=== PATIENT | female | born 1990 | race Caucasian/White ===

== ENCOUNTER 2021-07-06 10:42 | Emergency (ER) | payer MEDICAID, SELFPAY ==
[2021-07-06 10:44] VITALS: BP 149/105; PULSE 105; RESP 16; TEMP 36.3; O2SAT 100; BMI 43.8
--- NOTE | 2021-07-06 10:57 | EDS_ITS ---
HPI History of Present Illness Chief Complaint: Dental Informant: patient Onset/Context/Timing Onset: Weeks (6) Context: Gradual Onset Timing: Continuous Quality: Sharp, throbbing Location: Left lower jaw Worsened by: Nothing Relieved by: - (Nothing) Associated Symptoms Assocated Symptom - Dental: fever, jaw swelling, face swelling, cold sensitivity and hot sensitivity Narrative Narrative: Patient presents with left lower dental pain that has been getting worse over the past 6 weeks. Patient states it is sharp and throbbing. Patient states it is worse over the left lower molar area. Patient states she has been on antibiotics for this with no improvement. Patient states she is currently on clindamycin. Patient states nothing makes her pain worse and nothing makes it better. Patient admits to some subjective fevers. Patient also admits to swelling of her left lower jaw and face. Patient admits to hot and cold sensitivity. [facility] Medical History Chronic mental illness Home Medications citalopram 40 mg tablet 40 mg PO QDAY 03/05/17 [History Last Taken Unknown] naltrexone 50 mg tablet 50 mg PO QDAY 03/05/17 [History Last Taken Unknown] oxcarbazepine 150 mg tablet 300 mg PO BID 03/05/17 [History Last Taken Unknown] cephalexin 500 mg PO Q6 #40 capsule 07/06/21 [Rx Last Taken Unknown] dexamethasone [Decadron] 6 mg PO DAILY #7 tab 07/06/21 [Rx Last Taken Unknown] Allergy/AdvReac Type Severity Reaction Status Date / Time cyclobenzaprine Allergy Mild unknown Verified 07/06/21 10:43 [From Flexeril] amoxicillin [Amoxicillin] AdvReac Vomiting Verified 07/06/21 10:43 amoxicillin trihydrate AdvReac Vomiting Verified 07/06/21 10:43 [From Augmentin] potassium clavulanate AdvReac Vomiting Verified 07/06/21 10:43 [From Augmentin] Family History (Updated 03/05/17 @ 14:13 by Belinda Cardenas) Mother Arthritis Surgical History H/O eye surgery History of tonsillectomy Social History Smoking Status: Current every day smoker tobacco type: cigarettes ROS ROS ED Constitutional Constitutional ED: Reports fever(s) and subjective; Denies chills Eyes Eyes: Denies blurry vision or change in vision ENT ENT ED: Denies rhinorrhea or sore throat Cardiovascular Cardiovascular: Denies chest pain or palpitations Respiratory/Chest Respiratory/Chest: Reports cough; Denies dyspnea Gastrointestinal Gastrointestinal: Denies nausea or vomiting Genitourinary Genitourinary ED: Denies dysuria or hematuria Musculoskeletal Musculoskeletal: Reports back pain and neck pain Integumentary Denies abscess or rash Neurologic Neurologic: Denies headache(s) or weakness Allergic/Immunologic Allergic/Immunologic ED: Denies mouth swelling or urticaria EXAM Physical Exam Const Vital Signs: 07/06/21 10:44 Temperature 97.3 F L Temperature Source Temporal Pulse Rate 105 H Respiratory Rate 16 Blood Pressure 149/105 H Blood Pressure Mean 119 Pulse Ox 100 Oxygen Delivery Method Room Air Positive well nourished, well developed and obese General Appearance ED: well developed and NAD Nutritional Appearance: obese HEENT HEENT Narrative: There is tenderness over the left lower molars. There is some mild trismus noted. There is some edema over the left mandible area. There is no sublingual edema. Airway is patent. tenderness Mouth ED: Yes oral and palatal mucosa normal Mouth: oral and palatal mucosa normal Neck no lymphadenopathy and supple General: tenderness; Negative for submandibular swelling Neuro oriented x3, CN's II-XII intact bilaterally, moves all extremities, no focal motor deficits and no sensory deficits noted Sensorium / Orientation: alert MDM MDM MDM Narrative Medical decision making narrative: Patient was given IV fluids and morphine here. CBC shows a mild leukocytosis of 13.0. Basic metabolic profile was essentially within normal limits. CT scan of the soft tissue neck was obtained. There is suggestive of enlargement of the left palatine tonsils. There are small cervical lymph nodes noted. This was interpreted by the radiologist and reviewed by myself. Patient was given a dose of Ancef here. Patient has history of penicillin allergy but states this causes vomiting. Patient was given a dose of Decadron here. Patient was given prescriptions for Decadron and Keflex. Patient was instructed to follow-up with her dentist in 5 to 7 days. Patient was also given a referral for ENT. Patient was instructed to continue Tylenol and ibuprofen as needed for pain. Patient was instructed to return if worse in any way. Patient understood and was agreeable with the plan. All questions were answered. Lab Data Attestation: I reviewed the patient's lab results. Labs: Laboratory Results - last 24 hr 07/06/21 07/06/21 11:10 11:10 WBC 13.0 H RBC 4.07 L Hgb 12.7 Hct 37.2 MCV 91.4 MCH 31.2 MCHC 34.1 RDW Std Deviation 43.5 RDW Coeff of Guero 12.9 Plt Count 225 MPV 10.6 Immature Gran % (Auto) 0.200 Neut % (Auto) 77.5 H Lymph % (Auto) 12.4 L [place] % (Auto) 8.3 Eos % (Auto) 1.1 Baso % (Auto) 0.5 Absolute Neuts (auto) 10.0 H Absolute Lymphs (auto) 1.60 Nucleated RBC % 0 Sodium 139 Potassium 3.9 Chloride 109 H Carbon Dioxide 23.0 Anion Gap 7 BUN 7 Creatinine 0.88 Estim Creat Clear Calc 92.56 Est GFR (MDRD) Af Amer 97 Est GFR (MDRD) Non-Af 80 BUN/Creatinine Ratio 7.9 L Glucose 92 Calcium 8.8 Radiography Diagnostic Testing: Clinical Impression(s) from Imaging Studies Soft Tissue Neck CT 07/06/21 11:01 IMPRESSION: Findings suggestive of a enlargement and decreased density of the left palatine tonsils. Tonsillitis should be ruled out. Small cervical lymph nodes. Electronically Signed: Aakash Mayorga MD at 12:06 EDT , Discharge Plan Triage Chief Complaint: Dental ED Provider: Jamar Markham Dx/Rx/DC Orders Clinical Impression: Infected dental caries, Pharyngitis Instructions: ED Dental Abscess Prescriptions: New cephalexin [cephalexin] 500 MG capsule 500 mg PO Q6 Qty: 40 RF: 0 dexamethasone [Decadron] 6 mg tablet 6 mg PO DAILY Qty: 7 RF: 0 No Action naltrexone 50 mg tablet 50 mg PO QDAY RF: 0 oxcarbazepine [Trileptal] 150 mg tablet 300 mg PO BID RF: 0 citalopram [Celexa] 40 mg tablet 40 mg PO QDAY RF: 0 Primary Care Provider: Care Physician,No Primary Referrals: Garrison Flores MD [STAFF PHYSICIAN] - 3-5 Days Caro Clayton [NON-STAFF] - 3-5 Days Care Physician,No Primary [Primary Care Provider] - Disposition Disposition: Home, Self Care
--- NOTE | 2021-07-06 11:01 | CT_ITS ---
STUDY: CT SOFT TISSUE NECK WITH CONTRAST REASON FOR EXAM: Female, 30 years old. Left lower dental pain and swelling. RADIATION DOSAGE (If Supplied By Facility): CTDIvol = ( 18.98 ) mGy, DLP = ( 630.71 ) mGycm TECHNIQUE: The patient was scanned in a multi-detector CT scanner. High resolution transaxial imaging was performed following intravenous administration of IV 75mL [id number]-370. Sagittal and coronal images were reconstructed. Individualized dose optimization techniques were used for this CT. COMPARISON: None. FINDINGS: Normal bilateral parotid glands. Normal bilateral wire transfer clerk spaces. Normal bilateral parapharyngeal spaces. Normal bilateral carotid spaces. Small submental lymph nodes. Normal visualized nasopharynx. Normal retropharyngeal space. Normal perivertebral space. There is evidence of a hypodensity and swelling in the left palatine fossa palatine tonsils. Tonsillitis should be ruled out. No shanell abscess is seen at this time. The visualized tongue, tongue base and oropharynx are normal. The visualized cervical lymph nodes (levels I-) are within normal size limits, and maintain normal morphology. There is no demonstrated solid or cystic mass lesion. There is no abnormal contrast enhancement. Normal epiglottis, bilateral vallecula and hypopharynx. The pre-epiglottic and paraglottic adipose spaces are normal. Normal visualized bilateral piriform sinuses, aryepiglottic folds, vocal cords, and arytenoid-cricoid articulations. Normal subglottic trachea. Normal bilateral lobes of the thyroid gland. Normal visualized pulmonary apices. Normal visualized paranasal sinuses. Normal visualized cervical spine. CT/Soft Tissue Neck WITH Contrast IMPRESSION: Findings suggestive of a enlargement and decreased density of the left palatine tonsils. Tonsillitis should be ruled out. Small cervical lymph nodes. Electronically Signed: Aakash Mayorga MD at 12:06 EDT ,
[2021-07-06] MEDS: Morphine 4 MG/ML Syringe IV (11:09)
[2021-07-06] MEDS: 0.9% Normal Saline 1,000 ML 1000 ML IV (11:09)
[2021-07-06 11:15] LABS: Basophil# 0.07 X10^3/uL; Basophil% 0.5 % (0-1); Eosinophil# 0.14 X10^3/uL; Eosinophils% 1.1 % (0-5); Hematocrit 37.2 % (37-47); Hemoglobin 12.7 g/dL (12.0-15.0); Lymphocyte % 12.4 % (19-41); Mean Corp Hgb Conc 34.1 g/dL (32-36); Mean Corpuscular Hgb 31.2 pg (27.0-32.0); Mean Corpuscular Volume 91.4 fL (81-99); Mean Platelet Vol. 10.6 fl (6.2-12.0); Monocyte# 1.07 X10^3/uL; Monocyte% 8.3 % (0-10); NRBC Flagged by Analyzer 0 % (0-5); Neutrophil # 10.04 X10^3/uL (2.7-7.7); Neutrophil % 77.5 % (47-70); Platelet Count 225 K/mm3 (150-450); RBC Distribution Width CV 12.9 % (11.6-14.6); RBC Distribution Width SD 43.5 fl (35.1-43.9); Red Blood Count 4.07 M/mm3 (4.2-5.4)
[2021-07-06 11:31] LABS: Anion Gap 7 (5-15); BUN 7 mg/dL (7-18); BUN/Creat Ratio 7.9 RATIO (10-20); Calcium,Total 8.8 mg/dL (8.5-10.1); Chloride 109 mmol/L (98-107); Creatinine, Serum 0.88 mg/dL (0.55-1.02); EST Glomerular Filtration Rate 80 mL/min (>60); Est Glom Filt Rate - Afr Amer 97 mL/min (>60); Estimated Creatinine Clearance 92.56 ml/min; Glucose 92 mg/dL (74-106); Potassium 3.9 mmol/L (3.5-5.1); Sodium Level 139 mmol/L (136-145)
[2021-07-06] MEDS: dexAMETHasone 10 MG/ML Vial IV (12:32)
[2021-07-06] MEDS: Cefazolin 1 GM/50 ML BAG IV (12:32)
[2021-07-06 13:08] VITALS: BP 118/73; PULSE 86; RESP 14; O2SAT 99
== END 2021-07-06 13:09 | disposition home or self-care (01) ==
PROVIDERS: Emergency Provider Emergency Medicine; Visit Provider Emergency Medicine
DX: K02.9 Dental caries, unspecified (principal); J02.9 Acute pharyngitis, unspecified; F17.210 Nicotine dependence, cigarettes, uncomplicated; E66.9 Obesity, unspecified
CPT/HCPCS: 70491; 80048; 85025; 96365; 96375; 99283; J7030; Q9967; A4216